=== PATIENT | female | born 2000 | race Caucasian/White ===

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

== ENCOUNTER 2020-02-05 21:07 | Emergency (ER) | payer BC ==
[~2020-02-05] VITALS: Ht 177.8 cm; Wt 72.7 kg
[2020-02-05 21:19] VITALS: BP 115/81; TEMP 98.3
[2020-02-05] MEDS ORDERED: ROBAXIN 50500 MG/TAB PO (21:55)
[2020-02-05] MEDS ORDERED: TEGRETOL X200 MG/TA1 PO (21:56)
[2020-02-05] MEDS ORDERED: TOPAMAX 25MG25 M1 PO (21:57)
[2020-02-05] MEDS ORDERED: LEXAPRO 10MG10 MG PO (21:57)
[2020-02-05] MEDS ORDERED: INDERAL 10MG10 MG PO (21:59)
[2020-02-05] MEDS ORDERED: NAPROSYN500 MG PO (21:59)
[2020-02-05] MEDS ORDERED: ATARAX 25MG25 MG/TAB PO (21:59)
[2020-02-05] MEDS ORDERED: MAGNESIUM ELEME30 MG (22:00)
[2020-02-05] MEDS ORDERED: VITAMIN D CAP 500 (22:00)
[2020-02-05 22:19] LABS: BASO % 0.8 % (0.0-2.0); EOS % 0.8 % (0-4.0); GRAN # 2.4 (1.4-6.5); GRAN % 45.5 % (42.2-75.2); HEMOGLOBIN 12.4 g/dl (12.0-15.0); LYMPH # 2.2 (1.2-3.4); LYMPH % 42.7 % (20.0-51.0); MEAN CELL VOLUME 80 fl (80.0-95.0); MEAN CORPUSCULAR HEMOGLOBIN 25 pg (26.0-32.0); MEAN CORPUSCULAR HGB CONC 31 g/dl (33.0-37.0); MEAN PLATELET VOLUME 9.5 fl (7.4-10.4); MONO # 0.5 (0.1-0.6); PLATELET COUNT 298 K/mm3 (130-400); RED BLOOD COUNT 5.02 M/mm3 (4.10-5.30); REDCELL DISTRIBUTION WIDTH-CV 16.2 % (11.5-14.5)
[2020-02-05 22:33] LABS: ALANINE AMINOTRANSFERASE 15 U/L (4-34); ALBUMIN 4.1 gm/dL (3.5-5.0); ALKALINE PHOSPHATASE 144 U/L (50-136); ANION GAP 7 mmol/L (7-16); AST,SGOT 24 U/L (15-37); BILIRUBIN,TOTAL 0.2 mg/dL (0.0-1.0); BLOOD UREA NITROGEN 9 mg/dL (7-17); CALCIUM 8.6 mg/dL (8.4-10.2); CARBON DIOXIDE 22 mmol/L (22-30); CHLORIDE 107 mmol/L (98-107); CREATININE, serum 0.76 (0.52-1.25); GLUCOSE 88 mg/dL (74-106); POTASSIUM 3.5 mmol/L (3.4-5.0); SODIUM 136 mmol/L (137-145); TOTAL PROTEIN 6.9 gm/dL (6.4-8.2)
[2020-02-05 22:46] LABS: C-REACTIVE PROTEIN < 0.5 mg/dL (0.0-0.9); PROLACTIN 18.5 ng/mL (3.0-18.6)
[2020-02-05] MEDS ORDERED: ZOFRAN 4MG T4 MG/TAB PO (22:48)
[2020-02-05 23:07] VITALS: PULSE 72
== END 2020-02-05 23:07 | disposition home or self-care (01) ==
LOC: COL.ER 21:07
PROVIDERS: Emergency Medicine
DX: G40.909 Epilepsy, unspecified, not intractable, without status epilepticus (principal)
CPT/HCPCS: J2060; J2405; J7030

== ENCOUNTER 2020-02-22 16:24 | Emergency (ER) | payer BC ==
[~2020-02-22] VITALS: Ht 177.8 cm; Wt 72.7 kg
[~2020-02-22 16:24] MED LIST changes: +ATARAX 25MG25 MG/TAB PO; +INDERAL 10MG10 MG PO; +LEXAPRO 10MG10 MG PO; +MAGNESIUM ELEME30 MG; +NAPROSYN500 MG PO; +ROBAXIN 50500 MG/TAB PO; +TEGRETOL X200 MG/TA1 PO; +TOPAMAX 25MG25 M1 PO; +VITAMIN D CAP 500; +ZOFRAN 4MG T4 MG/TAB PO
[2020-02-22 16:54] VITALS: TEMP 98.7
[2020-02-22 17:25] LABS: BASO # 0.1 (0.0-0.2); EOS # 0.1 (0.0-0.7); EOS % 1.2 % (0-4.0); GRAN # 2.3 (1.4-6.5); GRAN % 47.3 % (42.2-75.2); HEMATOCRIT 38.2 % (35.0-45.0); HEMOGLOBIN 11.8 g/dl (12.0-15.0); LYMPH % 40.2 % (20.0-51.0); MEAN CELL VOLUME 83 fl (80.0-95.0); MEAN CORPUSCULAR HEMOGLOBIN 26 pg (26.0-32.0); MEAN CORPUSCULAR HGB CONC 31 g/dl (33.0-37.0); MEAN PLATELET VOLUME 9.7 fl (7.4-10.4); MONO # 0.5 (0.1-0.6); MONO % 10.1 % (1.7-9.3); PLATELET COUNT 284 K/mm3 (130-400); RED BLOOD COUNT 4.63 M/mm3 (4.10-5.30); REDCELL DISTRIBUTION WIDTH-CV 16.5 % (11.5-14.5)
[2020-02-22 17:26] LABS: ALANINE AMINOTRANSFERASE 17 U/L (4-34); ALBUMIN 3.9 gm/dL (3.5-5.0); ALKALINE PHOSPHATASE 126 U/L (50-136); ANION GAP 6 mmol/L (7-16); AST,SGOT 26 U/L (15-37); BILIRUBIN,TOTAL 0.2 mg/dL (0.0-1.0); BLOOD UREA NITROGEN 7 mg/dL (7-17); C-REACTIVE PROTEIN < 0.5 mg/dL (0.0-0.9); CALCIUM 8.6 mg/dL (8.4-10.2); CARBON DIOXIDE 24 mmol/L (22-30); CHLORIDE 105 mmol/L (98-107); CREATININE, serum 0.67 (0.52-1.25); GLUCOSE 95 mg/dL (74-106); POTASSIUM 3.9 mmol/L (3.4-5.0); SODIUM 136 mmol/L (137-145); TOTAL PROTEIN 6.5 gm/dL (6.4-8.2)
[2020-02-22 17:40] LABS: PROLACTIN 18.3 ng/mL (3.0-18.6)
[2020-02-22 18:37] VITALS: BP 110/66; PULSE 81
== END 2020-02-22 18:37 | disposition home or self-care (01) ==
LOC: COL.ER 16:24
PROVIDERS: Emergency Medicine
DX: G40.909 Epilepsy, unspecified, not intractable, without status epilepticus (principal); F17.210 Nicotine dependence, cigarettes, uncomplicated
CPT/HCPCS: J2060; J7030

== ENCOUNTER → 2020-03-13 | Outpatient (CLI) | payer BC | LOC: COL.LAB 08:25 | DX: J02.9 Acute pharyngitis, unspecified (principal); R09.89 Other specified symptoms and signs involving the circulatory and respiratory systems; Z20.828 Contact with and (suspected) exposure to other viral communicable diseases ==